=== PATIENT | male | born 1970 | race Caucasian/White ===

== ENCOUNTER 2019-07-10 09:17 | Emergency (ER) | payer BC ==
[~2019-07-10] VITALS: Ht 162.6 cm; Wt 86.2 kg
[2019-07-10 09:27] VITALS: Ht 162.6 cm; Wt 86.2 kg
[2019-07-10 11:05] VITALS: BP 131/75
== END 2019-07-10 11:05 | disposition home or self-care (01) ==
LOC: ED 09:17
DX: S93.491A Sprain of other ligament of right ankle, initial encounter (principal); M79.661 Pain in right lower leg; X50.1XXA Overexertion from prolonged static or awkward postures, initial encounter; Y93.89 Activity, other specified; Y92.89 Other specified places as the place of occurrence of the external cause; Y99.0 Civilian activity done for income or pay
CPT/HCPCS: Q0092